=== PATIENT | female | born 1930 | race Caucasian/White ===

== ENCOUNTER → 2018-10-16 09:12 | Outpatient (CLI) | payer MEDICARE, OTHER ==
[2009-12-26 08:52] VITALS: BMI 33.9
--- NOTE | 2018-10-19 10:07 | EC ---
PATIENT:PETE GUADALUPE DATE OF SERVICE: 10/16/18 SEX: F MEDICAL RECORD: [id number] DATE OF : [birth year] [facility] AGE OF PATIENT: 88 ADMISSION DATE: 10/16/18 REFERRING PHYSICIAN: INTERPRETING PHYSICIAN: DORY ARENAS MD ECHOCARDIOGRAM REPORT ECHO CHARGES 4 ECHO COMPLETE Date: 10/16/18 CLINICAL DIAGNOSIS: AORITC STENOSIS, HTN CAD, AFIB ECHOCARDIOGRAPHIC MEASUREMENTS (adult normal given) AC root (d.<3.7cm) 3.1 cm LV Septum d (<1.2 cm> 1.3 cm Valve Excursion 1.1 cm LV Septum (systole) 1.8 cm Left Atria (s.<4.0cm> 5.2 cm LVPW d(<1.2cm) 1.6 cm RV (d.<2.3cm) 3.9 cm LVPW (sytole) 1.7 cm LV diastole(<5.6CM) 4.8 cm MV E-F(>70mm/sec) cm LV systole 3.7 cm LVOT Diameter 1.5 cm MV exc.(>10mm) 1.6 cm Est.ejection fraction (50-75%) % DOPPLER: LVIT cm/sec A 53.0 cm/sec E 102 cm/sec LA cm/sec RVSP 40 mmHg LVOT 121 cm/sec AOP1/2T m/s Asc. Ao 294 cm/sec RVOT 101 cm/sec RA cm/sec PA 136 cm/sec AV Gradient Peak 34.64mmHg AV Mean 19.33mmHg AV Area 0.9 cm MV Gradient Peak 9.28 mmHg MV Mean 3.04 mmHg MV Area cm COMMENTS: Addiction Professional: 2 URSULA DAMON Pest Control Applicator: 3 Dr. Hameed TAPE# PACS Pericardial Effusion N DATE OF SERVICE: Adequate 2-D echo, color-flow and spectral Doppler, and M-mode. LVH is present. LV internal dimensions are normal. Wall motion is normal. EF is greater than or equal to 55%. 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 Peak gradient of 34 mmHg putting this in moderate range. Left atrium is dilated at 5.2 cm. Mitral valve shows no prolapse. Moderate to severe MR. Right-sided chambers are grossly normal. Mild TR. ECHOCARDIOGRAM REPORT [id number] PETE GUADALUPE TRANSINT:[id number] Voice Confirmation ID: [id number] DOCUMENT ID: [id number] DORY ARENAS MD at [facility] CC: [id number] DICTATION DATE: 10/16/181811 IRON LAUNDER OPERATOR: 10/17/18 0055 DEP CLI 10/16/18 [place] [id number] [place] [address]
== END | disposition home or self-care (01) ==
LOC: D.HCCARDIO 09:00
PROVIDERS: ATTEND Internal Medicine Interventional Cardiology
DX: I25.10 Atherosclerotic heart disease of native coronary artery without angina pectoris (principal)

== ENCOUNTER → 2020-02-25 08:50 | Outpatient (CLI) | payer MEDICARE, OTHER ==
[2009-12-26 08:52] VITALS: BMI 33.9
--- NOTE | 2020-02-29 08:21 | EC ---
PATIENT:PETE GUADALUPE DATE OF SERVICE: 02/25/20 SEX: F MEDICAL RECORD: [id number] DATE OF : [birth year] LOCATION:[facility] AGE OF PATIENT: 89 ADMISSION DATE: 02/25/20 REFERRING PHYSICIAN: INTERPRETING PHYSICIAN: DORY ARENAS MD ECHOCARDIOGRAM REPORT ECHO CHARGES 4 ECHO COMPLETE Date: 02/25/20 CLINICAL DIAGNOSIS: CAD/ASSESS AORITC STENOSIS, MITRAL AND TRICUSPID REGURG ECHOCARDIOGRAPHIC MEASUREMENTS (adult normal given) AC root (d.<3.7cm) 3.1 cm LV Septum d (<1.2 cm> 1.6 cm Valve Excursion 1.4 cm LV Septum (systole) 1.9 cm Left Atria (s.<4.0cm> 5.7 cm LVPW d(<1.2cm) 1.8 cm RV (d.<2.3cm) 3.3 cm LVPW (sytole) 1.9 cm LV diastole(<5.6CM) 4.4 cm MV E-F(>70mm/sec) cm LV systole 3.1 cm LVOT Diameter 1.5 cm MV exc.(>10mm) 1.1 cm Est.ejection fraction (50-75%) % DOPPLER: LVIT cm/sec A 49.0 cm/sec E 112.0 cm/sec LA cm/sec RVSP 143 mmHg LVOT 139 cm/sec AOP1/2T m/s Asc. Ao 375 cm/sec RVOT 44 cm/sec RA cm/sec PA 74 cm/sec AV Gradient Peak 56.19mmHg AV Mean 33.84mmHg AV Area 0.6 cm MV Gradient Peak 8.68 mmHg MV Mean 2.55 mmHg MV Area cm COMMENTS: Slot Machine Key Person: 2 URSULA DAMON Title Manager: 3 Dr. Hameed TAPE# PACS Pericardial Effusion N DATE OF SERVICE: Adequate 2D, color flow imaging, spectral Doppler, and M-Mode. LVH is present. LV internal dimensions are normal. Wall motion is normal. EF is greater than or equal to 55%. 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 Peak gradient of 56 mmHg putting this in severe range. Left atrium is dilated at 5.7 cm. Mitral valve shows no prolapse. Moderate MR. Right-sided chambers are grossly normal. Mild TR. TRANSINT:[id number] Voice Confirmation ID: [id number] DOCUMENT ID: [id number] ECHOCARDIOGRAM REPORT [id number] PETE GUADALUPE GREGORY A MD at 0821 CC: [id number] DICTATION DATE: 02/28/20 122 TOOLROOM MACHINIST: 02/28/202053 [facility] CLI 02/25/20 [place] [id number] [place] [id number]
== END | disposition home or self-care (01) ==
LOC: D.HCCECHO 08:50
PROVIDERS: ATTEND Internal Medicine Interventional Cardiology
DX: I25.10 Atherosclerotic heart disease of native coronary artery without angina pectoris (principal)